=== PATIENT | female | born 1955 | race Caucasian/White ===

== ENCOUNTER 2016-10-15 13:24 | Emergency (ER) | payer OTHER ==
[~2016-10-15 13:24] MED LIST: ADVICOR 5001 BOTTLE PO; ASPIRIN PO; IBUPROFEN PO; KEFLEX PO; LEVOTHYROXINE150 MCG PO; LOVENOX40 MG/0.4 INJ; NORCO 10/325 TA1 TAB PO; PRAVACHOL20 MG PO; SYNTHROID PO
[2016-10-15] MEDS ORDERED: IRON18 MG PO (13:44)
== END 2016-10-15 14:19 | disposition home or self-care (01) ==
LOC: SED 13:24
DX: S81.811A Laceration without foreign body, right lower leg, initial encounter (principal); E78.5 Hyperlipidemia, unspecified; Z88.5 Allergy status to narcotic agent; W26.9XXA Contact with unspecified sharp object(s), initial encounter; Y92.009 Unspecified place in unspecified non-institutional (private) residence as the place of occurrence of the external cause
CPT/HCPCS: 12002; 90471; 90715; 99283

== ENCOUNTER 2016-10-17 13:25 | Emergency (ER) | payer OTHER ==
[~2016-10-17 13:25] MED LIST changes: +IRON18 MG PO
[2016-10-17] MEDS ORDERED: ASPIRIN81 MG (13:36)
[2016-10-17] MEDS ORDERED: PRAVACHOL (13:36)
[2016-10-17] MEDS ORDERED: LEVOTHYROXINE50 MCG PO (13:37)
== END 2016-10-17 15:23 | disposition home or self-care (01) ==
LOC: SED 13:25
DX: S81.811D Laceration without foreign body, right lower leg, subsequent encounter (principal); E07.9 Disorder of thyroid, unspecified; Z88.5 Allergy status to narcotic agent; Z79.82 Long term (current) use of aspirin; Z79.899 Other long term (current) drug therapy; X58.XXXD Exposure to other specified factors, subsequent encounter
CPT/HCPCS: 99281; 99283